=== PATIENT | male | born 1995 | race Caucasian/White ===

== ENCOUNTER 2018-06-22 15:22 | Emergency (ER) | payer SELFPAY ==
[~2018-06-22] VITALS: Ht 182.9 cm; Wt 79.0 kg
[2018-06-22 15:49] VITALS: BP 135/70; PULSE 68; RESP 18; Ht 182.9 cm; Wt 79.0 kg
== END 2018-06-22 18:37 | disposition left against medical advice (07) ==
LOC: FTE 15:22
DX: Z53.21 Procedure and treatment not carried out due to patient leaving prior to being seen by health care provider (principal)